=== PATIENT | female | born 1945 | race Two or more races ===

== ENCOUNTER 2023-08-15 07:58 | Emergency (ER) | payer OTHER ==
[~2023-08-15] VITALS: Ht 165.1 cm; Wt 87.1 kg
[2023-08-15] MEDS ORDERED: CLONAZEPAM2 MG PO (08:11)
[2023-08-15] MEDS ORDERED: GLUMETZA500 MG (08:11)
[2023-08-15] MEDS ORDERED: COZAAR25 MG PO (08:12)
[2023-08-15] MEDS ORDERED: SYNTHROID75 MCG PO (08:12)
[2023-08-15] MEDS ORDERED: NORVASC2.5 M1 PO (08:12)
[2023-08-15] MEDS ORDERED: VAZALORE81 MG PO (08:13)
[2023-08-15] MEDS ORDERED: PEPCID AC20 MG (08:13)
[2023-08-15] MEDS ORDERED: CAMBIA50 MG (08:13)
[2023-08-15] MEDS ORDERED: DICY20TA PO (08:14)
[2023-08-15] MEDS ORDERED: ZYRTEC10 M3 (08:15)
[2023-08-15] MEDS ORDERED: MONTELUKAST SODI4 M1 (08:17)
[2023-08-15] MEDS ORDERED: FLONASE16 GM (08:17)
[2023-08-15] MEDS ORDERED: FAMOTIDINE/PF 20 MG in 0.9 % SODIUM CHLORIDE 8 ML IV PUSH STA (08:24)
[2023-08-15] MEDS ORDERED: KETOROLAC TROMETHAMINE 30 MG VIAL IV ONE (08:30)
[2023-08-15] MEDS ORDERED: 0.9 % SODIUM CHLORIDE 1,000 ML IV SCH (08:30)
[2023-08-15 09:12] LABS: HEMATOCRIT 39.1 % (36.0-45.00); HEMOGLOBIN 12.9 g/dL (12.0-15.00); MEAN CELL VOLUME 78.4 fL (80.00-100.00); MEAN CORPUSCULAR HEMOGLOBIN 25.9 pg (27.00-32.0); PLATELET COUNT 247 K/uL (150-450); RED BLOOD COUNT 4.99 M/uL (4.00-6.00); RED CELL DISTRIBUTION WIDTH 16.2 % (11.5-14.5)
[2023-08-15 09:53] LABS: ALBUMIN 4.2 gm/dL (3.4-5.0); BILIRUBIN TOTAL 0.45 mg/dL (0.3-1.2); CALCIUM 10.2 mg/dL (8.5-10.1); CREATININE SERUM 0.43 mg/dL (0.55-1.02); GFR 143.14; GLOBULINA 3.1 G/DL (2.4-3.5); POTASSIUM 3.85 mEq/L (3.5-5.1); TOTAL PROTEIN 7.3 gm/dL (6.4-8.2)
[2023-08-15 10:17] LABS: PH,URINE 6.5 (5.0-8.0); URINE APPEARANCE Clear; URINE BILIRRUBIN Negative (NEGATIVE); URINE BLOOD Negative; URINE COLOR Yellow; URINE EPITHELIAL CELLS 1.5 uL (0.0-38.8); URINE GLUCOSE Negative (NEGATIVE); URINE LEUKOCYTE Negative; URINE NITRATE Negative; URINE PROTEIN Negative (NEGATIVE); URINE UROBILINOGEN 0.2 E.U./dl
[2023-08-15 10:23] LABS: URINE BACTERIA 2.5 uL (0.0-1933); URINE RBC 1.4 uL (0.0-20.8)
== END 2023-08-15 13:27 | disposition home or self-care (01) ==
LOC: ER 07:58
PROVIDERS: General Practice
DX: K29.70 Gastritis, unspecified, without bleeding (principal); R10.2 Pelvic and perineal pain; R10.9 Unspecified abdominal pain; I10 Essential (primary) hypertension; E11.9 Type 2 diabetes mellitus without complications; Z79.84 Long term (current) use of oral hypoglycemic drugs; Z91.013 Allergy to seafood
CPT/HCPCS: 36415; 76830; 96365; 96366; 99284; J1885; J3490; J7030

== ENCOUNTER 2023-11-26 04:54 | Emergency (ER) | payer OTHER ==
[~2023-11-26] VITALS: Ht 160 cm; Wt 90.7 kg
[~2023-11-26 04:54] MED LIST: CAMBIA50 MG; CLONAZEPAM2 MG PO; COZAAR25 MG PO; DICY20TA PO; FLONASE16 GM; GLUMETZA500 MG; MONTELUKAST SODI4 M1; NORVASC2.5 M1 PO; PEPCID AC20 MG; SYNTHROID75 MCG PO; VAZALORE81 MG PO; ZYRTEC10 M3
[2023-11-26] MEDS ORDERED: RINGERS SOLUTION,LACTATED 1,000 ML IV STA (06:37)
[2023-11-26] MEDS ORDERED: MEPERIDINE HCL/PF 25 MG/ML VIAL IM STA (06:38)
[2023-11-26] MEDS ORDERED: PROMETHAZINE HCL 25 MG/ML AMPUL IM STA (06:39)
[2023-11-26] MEDS ORDERED: PROMETHAZINE HCL 25 MG/ML AMPUL ONE (07:13)
[2023-11-26] MEDS ORDERED: BARIUM SULFATE 450 ML ORAL.SUSP PO ONE (07:16)
[2023-11-26 07:31] LABS: HEMATOCRIT 38.5 % (36.0-45.00); HEMOGLOBIN 12.6 g/dL (12.0-15.00); MEAN CELL VOLUME 78.5 fL (80.00-100.00); MEAN CORPUSCULAR HEMOGLOBIN 25.7 pg (27.00-32.0); MEAN CORPUSCULAR HGB CONC 32.7 g/dl (32.0-36.0); PLATELET COUNT 270 K/uL (150-450); RED BLOOD COUNT 4.91 M/uL (4.00-6.00)
[2023-11-26 07:42] LABS: INR 0.99; PARTIAL THROMBOPLASTIN TIME 28.5 SECONDS (22.0-34.0); PROTHROMBIN TIME 10.4 SECONDS (9.0-11.5)
[2023-11-26 07:43] LABS: CALCIUM 9.8 mg/dL (8.5-10.1); CREATININE SERUM 0.42 mg/dL (0.55-1.02); GFR 146.69; POTASSIUM 3.65 mEq/L (3.5-5.1)
[2023-11-26 08:20] LABS: PH,URINE 7.5 (5.0-8.0); URINE APPEARANCE Clear; URINE BILIRRUBIN Negative (NEGATIVE); URINE BLOOD Negative; URINE COLOR Yellow; URINE GLUCOSE Negative (NEGATIVE); URINE LEUKOCYTE Negative; URINE NITRATE Negative; URINE PROTEIN Negative (NEGATIVE); URINE UROBILINOGEN 0.2 E.U./dl
[2023-11-26 08:23] LABS: URINE BACTERIA 20.1 uL (0.0-1933); URINE RBC 3.5 uL (0.0-20.8); URINE WBC 3.3 uL (0.0-23.2)
[2023-11-26 08:24] LABS: URINE EPITHELIAL CELLS 0.7 uL (0.0-38.8)
== END 2023-11-26 11:48 | disposition home or self-care (01) ==
LOC: ER 04:54
DX: R10.31 Right lower quadrant pain (principal); R10.9 Unspecified abdominal pain; Z91.013 Allergy to seafood
CPT/HCPCS: 36415; 74177; 96372; 99284; J3490 ×2; Q9965

== ENCOUNTER 2023-12-18 00:45 | Emergency (ER) | payer OTHER ==
[~2023-12-18] VITALS: Ht 165.1 cm; Wt 78.9 kg
[2023-12-18] MEDS ORDERED: SINGULAIR10 MG PO (01:05)
[2023-12-18] MEDS ORDERED: hydrOXYzine PAMOATE 50 MG CAPSULE PO STA (03:04)
[2023-12-18] MEDS ORDERED: GUAIFENESIN 200 MG/10 ML BLIST.PACK PO STA (03:05)
[2023-12-18] MEDS ORDERED: GUAIFENESIN/DEXTROMETHORPHAN 10ML BLIST.PACK PO ONE (03:10)
[2023-12-18] MEDS ORDERED: hydrOXYzine PAMOATE 50 MG CAPSULE PO ONE (03:10)
[2023-12-18] MEDS ORDERED: LEVALBUTEROL HCL 0.63 MG/3 ML SOLUTION IH ONE (03:12)
[2023-12-18] MEDS ORDERED: LEVALBUTEROL HCL 0.63 MG/3 ML SOLUTION IH SCH (03:15)
[2023-12-18] MEDS ORDERED: KETOROLAC TROMETHAMINE 10 MG TABLET PO STA (03:27)
[2023-12-18] MEDS ORDERED: KETOROLAC TROMETHAMINE 10 MG TABLET PO ONE (03:30)
[2023-12-18 03:44] LABS: HEMATOCRIT 38.4 % (36.0-45.00); HEMOGLOBIN 12.8 g/dL (12.0-15.00); MEAN CELL VOLUME 79.3 fL (80.00-100.00); MEAN CORPUSCULAR HEMOGLOBIN 26.5 pg (27.00-32.0); MEAN CORPUSCULAR HGB CONC 33.4 g/dl (32.0-36.0); PLATELET COUNT 285 K/uL (150-450); RED BLOOD COUNT 4.85 M/uL (4.00-6.00); RED CELL DISTRIBUTION WIDTH 15.9 % (11.5-14.5)
[2023-12-18] MEDS ORDERED: VISTARIL25 MG PO (05:14)
[2023-12-18] MEDS ORDERED: LEVALBUTER0.63 MG/3 IH (05:14)
== END 2023-12-18 05:18 | disposition home or self-care (01) ==
LOC: ER 00:45
PROVIDERS: General Practice
DX: J45.909 Unspecified asthma, uncomplicated (principal); F41.9 Anxiety disorder, unspecified; Z20.822 Contact with and (suspected) exposure to COVID-19; E03.8 Other specified hypothyroidism; E11.9 Type 2 diabetes mellitus without complications; Z79.84 Long term (current) use of oral hypoglycemic drugs; Z91.013 Allergy to seafood